=== PATIENT | female | born 1985 | race Caucasian/White ===

== ENCOUNTER 2021-11-29 13:47 | Emergency (ER) | payer BC ==
[~2021-11-29] VITALS: Ht 160 cm; Wt 109.8 kg
[2021-11-29] MEDS ORDERED: METF500T13 PO (14:01)
[2021-11-29] MEDS ORDERED: LISI5TAB11 PO (14:01)
[2021-11-29 16:13] VITALS: BP 148/96
== END 2021-11-29 16:08 | disposition home or self-care (01) ==
LOC: M ED 13:47
DX: S00.03XA Contusion of scalp, initial encounter (principal); W01.198A Fall on same level from slipping, tripping and stumbling with subsequent striking against other object, initial encounter; W22.8XXA Striking against or struck by other objects, initial encounter; I10 Essential (primary) hypertension; E11.9 Type 2 diabetes mellitus without complications; Z79.84 Long term (current) use of oral hypoglycemic drugs; Z88.6 Allergy status to analgesic agent